=== PATIENT | male | born 1930 | race Caucasian/White ===

== ENCOUNTER 2016-11-23 | Outpatient (CLI) | payer MEDICARE, OTHER | END 2016-11-23 12:51 | disposition short-term general hospital (02) | CPT/HCPCS: A0425; A0429 ==

== ENCOUNTER 2016-12-07 | Outpatient (CLI) | payer MEDICARE, OTHER | END 2016-12-07 18:55 | disposition EMS.NT | DX: Z03.89 Encounter for observation for other suspected diseases and conditions ruled out (principal) ==

== ENCOUNTER 2016-12-12 | Outpatient (CLI) | payer MEDICARE, OTHER | END 2016-12-12 10:56 | disposition short-term general hospital (02) | DX: M79.89 Other specified soft tissue disorders (principal) | CPT/HCPCS: A0425; A0429 ==